=== PATIENT | female | born 1975 | race Caucasian/White ===

== ENCOUNTER 2018-06-04 11:26 | Emergency (ER) | payer OTHER ==
[2018-06-04] MEDS ORDERED: SODIUM CHLORIDE 0.9% 1,000 ML IV STA (11:57)
[2018-06-04] MEDS ORDERED: ONDANSETRON 4 MG/2 ML VIAL IVP STA (11:57)
--- NOTE | 2018-06-04 12:12 | ED ---
General Adult HPI - General Chief complaint: Nausea/Vomiting/Diarrhea Stated complaint: diarrhea, dehydration Time Seen by Provider: 06/04/18 11:57 Source: patient, RN notes reviewed, old records reviewed Mode of arrival: ambulatory Limitations: no limitations - History of Present Illness Initial comments: 43-year-old female patient past medical history of hypothyroidism, status post cholecystectomy presents to ED with 3 days of abdominal cramping which have resolved, emesis which have resolved, nausea and diarrhea. Patient reports that her current complaints include nausea and diarrhea which have been persistent for 3 days. Patient denies any emesis today. Patient was that she had syndrome was abdominal cramping earlier in the week which have resolved. Patient also reports some generalized myalgias which have also resolved. Patient denies any other complaints. Systemic: Pt denies fever/chills, rash. Pt denies weakness, night sweats, weight loss. Neuro: Pt denies headache, visual disturbances, syncope or pre-syncope. HEENT: Pt denies ocular discharge or irritation, otalgia, rhinorrhea, pharyngitis or notable lymphadenopathy. Cardiopulmonary: Pt denies chest pain, SOB, heart palpitations, dyspnea on exertion. Abdominal/GI: Pt denies abdominal pain. : Pt denies dysuria, burning w/ urination, frequency/urgency. Denies new onset urinary or bowel incontinence. MSK: Pt denies loss of strength or function in extremities. Neuro: Pt denies new onset weakness, paresthesias. - Related Data Home Medications Medication Instructions Recorded Confirmed Acetaminophen Tab [Tylenol Tab] 1,000 mg PO Q6HR PRN 06/04/18 06/04/18 Levothyroxine Sodium [Synthroid] 88 mcg PO DAILY 06/04/18 06/04/18 Previous Rx's Medication Instructions Recorded Ondansetron Odt [Zofran ODT] 4 mg PO Q8HR PRN #20 tab 06/04/18 Allergies Allergy/AdvReac Type Severity Reaction Status Date / Time sulfamethoxazole Allergy Unknown Verified 06/04/18 12:02 [From Bactrim] trimethoprim [From Bactrim] Allergy Unknown Verified 06/04/18 12:02 Review of Systems ROS Statement: Those systems with pertinent positive or pertinent negative responses have been documented in the HPI. ROS Other: All systems not noted in ROS Statement are negative. Past Medical History Past Medical History: Thyroid Disorder Additional Past Medical History / Comment(s): THALSSEMIA History of Any Multi-Drug Resistant Organisms: None Reported Past Surgical History: Cholecystectomy Past Psychological History: No Psychological Hx Reported Smoking Status: Never smoker Past Alcohol Use History: None Reported Past Drug Use History: None Reported General Exam - General Exam Comments Initial Comments: Constitutional: NAD, AOX3, Pt has pleasant affect. HEENT: NC/AT, trachea midline, neck supple, no lymphadenopathy. Posterior pharynx non erythematous, without exudates. External ears appear normal, without discharge. Mucous membranes moist. Eyes PERRLA, EOM intact. There is no scleral icterus. No pallor noted. Cardiopulmonary: RRR, no murmurs, rubs or gallops, no JVD noted. Lungs CTAB in anterior and posterior bacon. No peripheral edema. Abdominal exam: Abdomen soft and non-distended. Abdomen mildly tender to palpation right upper quadrant, Lee sign negative. Repeat abdominal te nderness displayed mild periumbilical tenderness. Final abdominal exam revealed nontender abdomen. No other areas of abdominal tenderness, no tenderness at McBurney's point.. Bowel sounds active in LLQ. No hepatosplenomegaly. No ecchymosis. No guarding or rigidity. Neuro: CN II-XII grossly intact. No nuchal rigidity. MSK: No posterior calf tenderness bilaterally, homans sign negative bilaterally. Posterior tibialis and radial pulse +2 bilaterally. Sensation intact in upper and lower extremities. Full active ROM in upper and lower extremities, 5/5 stregnth. Limitations: no limitations Course Vital Signs 06/04/18 06/04/18 06/04/18 11:50 12:06 14:26 Temperature 97.9 F 97.8 F Pulse Rate 116 H 90 88 Respiratory 16 18 Rate Blood Pressure 109/66 105/76 O2 Sat by Pulse 100 100 Oximetry Medical Decision Making - Medical Decision Making 43-year-old female patient past medical history of hypothyroidism, status post cholecystectomy presents to ED with 3 days of abdominal cramping which have resolved, emesis which have resolved, nausea and diarrhea. Patient reports that her current complaints include nausea and diarrhea which have been persistent for 3 days. Patient denies any emesis today. Patient was that she had syndrome was abdominal cramping earlier in the week which have resolved. Patient also reports some generalized myalgias which have also resolved. Patient denies any other complaints. Pt VSS, afebrile. Physical exam displayed: Abdomen soft and non-distended. Abdomen mildly tender to palpation right upper quadrant, Lee sign negative. Repeat abdominal tenderness displayed mild periumbilical tenderness. Final abdominal exam revealed nontender abdomen. No other areas of abdominal tenderness, no tenderness at McBurney's point.. Bowel sounds active in LLQ. No hepatosplenomegaly. No ecchymosis. No guarding or rigidity. Laboratory investigations revealed non-impressive CBC, CMP. UA displayed plus for ketones, otherwise contaminated. Will culture. Influenza negative. KUB displayed scattered air-fluid levels. CT of abdomen and pelvis with contrast displayed likely enteritis. Other findings which will follow with primary care provider including heterogenicity myometrium, right renal cyst. Findings were discussed with patient at length. Patient verbalized understanding. Patient tolerating PO intake in ED. likely expressing a viral gastroenteritis syndrome. Patient improved with IV fluids, Zofran. Patient will continue supportive treatment at home, prescribed Zofran. Patient will follow with primary provider in 1-2 days. Patient will return to ER if condition worsens in any way. Case discussed with Dr. Landeros. - Lab Data Result diagrams: 06/04/18 12:18 06/04/18 12:18 Lab Results 06/04/18 06/04/18 06/04/18 Range/Units 12:18 12:18 12:18 WBC 4.6 (3.8-10.6) k/uL RBC 5.48 H (3.80-5.40) m/uL Hgb 12.0 (11.4-16.0) gm/dL Hct 37.7 (34.0-46.0) % MCV 68.7 L (80.0-100.0) fL MCH 21.9 L (25.0-35.0) pg MCHC 31.9 (31.0-37.0) g/dL RDW 14.5 (11.5-15.5) % Plt Count 265 (150-450) k/uL Neutrophils % 77 % Lymphocytes % 12 % Monocytes % 6 % Eosinophils % 3 % Basophils % 1 % Neutrophils # 3.5 (1.3-7.7) k/uL Lymphocytes # 0.6 L (1.0-4.8) k/uL Monocytes # 0.3 (0-1.0) k/uL Eosinophils # 0.1 (0-0.7) k/uL Basophils # 0.0 (0-0.2) k/uL Hypochromasia Slight Microcytosis Marked Sodium 138 (137-145) mmol/L Potassium 3.8 (3.5-5.1) mmol/L Chloride 103 (98-107) mmol/L Carbon Dioxide 23 (22-30) mmol/L Anion Gap 12 mmol/L BUN 12 (7-17) mg/dL Creatinine 0.53 (0.52-1.04) mg/dL Est GFR (CKD-EPI)AfAm >90 (>60 ml/min/1.73 sqM) Est GFR (CKD-EPI)NonAf >90 (>60 ml/min/1.73 sqM) Glucose 84 (74-99) mg/dL Plasma Lactic Acid [place] 1.3 (0.7-2.0) mmol/L Calcium 9.5 (8.4-10.2) mg/dL Total Bilirubin 0.7 (0.2-1.3) mg/dL AST 28 (14-36) U/L ALT 35 (9-52) U/L Alkaline Phosphatase 65 (38-126) U/L Total Protein 7.4 (6.3-8.2) g/dL Albumin 4.3 (3.5-5.0) g/dL Lipase 50 (23-300) U/L Urine Color Urine Appearance (Clear) Urine pH (5.0-8.0) Ur Specific [place] (1.001-1.035) Urine Protein (Negative) Urine Glucose (UA) (Negative) Urine Ketones (Negative) Urine Blood (Negative) Urine Nitrite (Negative) Urine Bilirubin (Negative) Urine Urobilinogen (<2.0) mg/dL Ur Leukocyte Esterase (Negative) Urine RBC (0-5) /hpf Urine WBC (0-5) /hpf Ur Squamous Epith Cells (0-4) /hpf Urine Bacteria (None) /hpf Urine Mucus (None) /hpf Urine HCG, Qual (Not Detectd) Influenza Type A RNA (Not Detectd) Influenza Type B (PCR) (Not Detectd) 06/04/18 06/04/18 06/04/18 Range/Units 12:18 12:18 12:25 WBC (3.8-10.6) k/uL RBC (3.80-5.40) m/uL Hgb (11.4-16.0) gm/dL Hct (34.0-46.0) % MCV (80.0-100.0) fL MCH (25.0-35.0) pg MCHC (31.0-37.0) g/dL RDW (11.5-15.5) % Plt Count (150-450) k/uL Neutrophils % % Lymphocytes % % Monocytes % % Eosinophils % % Basophils % % Neutrophils # (1.3-7.7) k/uL Lymphocytes # (1.0-4.8) k/uL Monocytes # (0-1.0) k/uL Eosinophils # (0-0.7) k/uL Basophils # (0-0.2) k/uL Hypochromasia Microcytosis Sodium (137-145) mmol/L Potassium (3.5-5.1) mmol/L Chloride (98-107) mmol/L Carbon Dioxide (22-30) mmol/L Anion Gap mmol/L BUN (7-17) mg/dL Creatinine (0.52-1.04) mg/dL Est GFR (CKD-EPI)AfAm (>60 ml/min/1.73 sqM) Est GFR (CKD-EPI)NonAf (>60 ml/min/1.73 sqM) Glucose (74-99) mg/dL Plasma Lactic Acid [place] (0.7-2.0) mmol/L Calcium (8.4-10.2) mg/dL Total Bilirubin (0.2-1.3) mg/dL AST (14-36) U/L ALT (9-52) U/L Alkaline Phosphatase (38-126) U/L Total Protein (6.3-8.2) g/dL Albumin (3.5-5.0) g/dL Lipase (23-300) U/L Urine Color Yellow Urine Appearance Cloudy H (Clear) Urine pH 6.0 (5.0-8.0) Ur Specific [place] 1.030 (1.001-1.035) Urine Protein 1+ H (Negative) Urine Glucose (UA) Negative (Negative) Urine Ketones 4+ H (Negative) Urine Blood Small H (Negative) Urine Nitrite Negative (Negative) Urine Bilirubin Negative (Negative) Urine Urobilinogen 2.0 (<2.0) mg/dL Ur Leukocyte Esterase Small H (Negative) Urine RBC 16 H (0-5) /hpf Urine WBC 8 H (0-5) /hpf Ur Squamous Epith Cells 8 H (0-4) /hpf Urine Bacteria Rare H (None) /hpf Urine Mucus Many H (None) /hpf Urine HCG, Qual Not Detected (Not Detectd) Influenza Type A RNA Not Detected (Not Detectd) Influenza Type B (PCR) Not Detected (Not Detectd) Disposition Clinical Impression: Nausea vomiting and diarrhea Disposition: HOME SELF-CARE Instructions (If sedation given, give patient instructions): Acute Nausea and Vomiting (ED), Acute Diarrhea (ED), Nutrition Tips for Relief of Diarrhea (ED) Additional Instructions: Patient to adhere to previously discussed treatment plan and will take medication(s) as directed. Patient to follow up with PCP in 1-2 days. Patient to return to ED if symptoms do not improve. Resolved with primary care provider in 1-2 days. Please see Zofran as needed for nausea. Please return to ER if condition worsens in any way or if abdominal pain develops. Prescriptions: Ondansetron Odt [Zofran ODT] 4 mg PO Q8HR PRN #20 tab PRN Reason: Nausea Is patient prescribed a controlled substance at d/c from ED?: No Referrals: Geovany Huerta MD [Primary Care Provider] - 1-2 days
--- NOTE | 2018-06-04 12:47 | XR ---
EXAMINATION TYPE: XR KUB DATE OF EXAM: 06/04/2018 12:39 PM CLINICAL HISTORY: Left lower quadrant pain for 2 days with diarrhea. TECHNIQUE: Single upright image of the abdomen is obtained. COMPARISON: None. FINDINGS: Numerous colonic air-fluid levels are seen throughout nondilated bowel compatible with the patient's provided history of colonic malabsorption/diarrhea. Air-fluid levels are also seen within n ondilated small bowel suggesting underlying ileus. No dilated bowel to suggest obstruction. Surgical clips are seen within the right mid abdomen. No pneumoperitoneum. Lung bases are well aerated. Osseou s structures are intact. IMPRESSION: Colonic air-fluid levels relate to the patient's known colonic malabsorption/diarrhea. Sc attered air-fluid levels suggest small bowel ileus, likely reactive. No dilated bowel to suggest obst ruction.
[2018-06-04 12:56] LABS: ALT 35 U/L (9-52); AST 28 U/L (14-36); Albumin 4.3 g/dL (3.5-5.0); Alkaline Phosphatase 65 U/L (38-126); Anion Gap 12 mmol/L; Blood Urea Nitrogen 12 mg/dL (7-17); Calcium 9.5 mg/dL (8.4-10.2); Carbon Dioxide 23 mmol/L (22-30); Chloride 103 mmol/L (98-107); Glucose 84 mg/dL (74-99); Lipase 50 U/L (23-300); Potassium 3.8 mmol/L (3.5-5.1); Sodium 138 mmol/L (137-145); Total Bilirubin 0.7 mg/dL (0.2-1.3); Total Protein 7.4 g/dL (6.3-8.2)
[2018-06-04 13:02] LABS: Appearance,Urine Cloudy (Clear); Bacteria,Urine Rare /hpf; Bilirubin,Urine Negative (Negative); Blood,Urine Small (Negative); Color,Urine Yellow; Glucose,Urine (UA) Negative (Negative); Ketones,Urine 4+ (Negative); Leukocyte Esterase,Urine Small (Negative); Mucus,Urine Many /hpf; Nitrite,Urine Negative (Negative); Protein,Urine 1+ (Negative); RBC,Urine 16 /hpf (0-5); Squamous Epithelial Cell,Urine 8 /hpf (0-4)
[2018-06-04 13:10] LABS: Basophils % (A) 1 %; Eosinophils # (A) 0.1 k/uL (0-0.7); Eosinophils % (A) 3 %; HCT 37.7 % (34.0-46.0); Hypochromasia Slight; Lymphocytes # (A) 0.6 k/uL (1.0-4.8); Lymphocytes % (A) 12 %; MCH 21.9 pg (25.0-35.0); MCHC 31.9 g/dL (31.0-37.0); MCV 68.7 fL (80.0-100.0); Mean Platelet Volume 6.5; Microcytosis Marked; Monocytes # (A) 0.3 k/uL (0-1.0); Monocytes % (A) 6 %; Neutrophils # (A) 3.5 k/uL (1.3-7.7); Neutrophils % (A) 77 %; Platelet Count 265 k/uL (150-450); RBC 5.48 m/uL (3.80-5.40); RDW 14.5 % (11.5-15.5); WBC 4.6 k/uL (3.8-10.6)
--- NOTE | 2018-06-04 14:15 | CT ---
EXAMINATION TYPE: CT abdomen pelvis w con DATE OF EXAM: 06/04/2018 HISTORY: Diarrhea, RLQ pain CT DLP: 425.7mGycm Automated Exposure Control for Dose Reduction was Utilized. CONTRAST: CT scan of the abdomen and pelvis is performed with IV Contrast, patient injected with 100 mL of Isov ue 300. COMPARISON: None. FINDINGS: LUNG BASES: No significant abnormality is appreciated. LIVER/GB: No significant abnormality is appreciated. Gallbladder is surgically absent. PANCREAS: No significant abnormality is seen. SPLEEN: No significant abnormality is seen. ADRENALS: No significant abnormality is seen. KIDNEYS: Left upper pole too small to accurately characterize 4 mm hypoattenuated left renal lesion i s seen on image 20. There is a new 9 mm right renal lesion in the upper pole on image 24 that althoug h does not meet criteria for a simple cyst may represent a cyst with signal enhancement as this measu res fluid attenuation on the delayed images. However this was not seen on the exam of 2014. There is a left retroaortic renal vein. BOWEL: Hyperdense foci are seen within the cecum near the expected location of the appendix. Clustere d small bowel loops are seen within the right lower quadrant therefore a discrete appendix is not see n. On coronal image 28 there is thickening of the terminal ileum. Multifocal small bowel wall thicken ing is seen throughout numerous loops of scattered small bowel. Colonic air-fluid levels representing the patient's known symptom of diarrhea. No dilated large or small bowel is seen. UTERUS/ADNEXA: Uterus is diffusely heterogenous with engorged pelvic vasculature. Crenulated appearin g cyst seen of a left ovarian follicle/cyst on coronal image 47. Follicular changes of the right ovar y are noted on image 42 and 41. LYMPH NODES: No greater than 1cm abdominal or pelvic lymph nodes are appreciated. OSSEOUS STRUCTURES: No acute osseous pathology identified. IMPRESSION: 1. Multifocal small bowel wall thickening including thickening of the terminal ileum suggests enterit is of infectious or inflammatory etiology. Inflammatory bowel disease should be considered given the involvement of the terminal ileum. 2. Colonic air-fluid levels correspond to the patient's clinical symptom of diarrhea. No evidence of bowel obstruction. 3. Diffuse heterogeneity of the myometrium should be further characterized with ultrasound. Additiona lly there are engorged pelvic vessels suggesting pelvic congestion syndrome. Bilateral follicles with a crenulated appearance on the left are seen likely representing an involuting left hemorrhagic cyst . 4. Appendix is not clearly defined given the numerous adjacent loops of small bowel. 5. Probable right renal cyst with pseudoenhancement that could be confirmed with ultrasound.
[2018-06-04 14:28] VITALS: BP 105/76; PULSE 88; RESP 18; TEMP 97.8
== END 2018-06-04 14:52 | disposition home or self-care (01) ==
LOC: EC 11:26
DX: R19.7 Diarrhea, unspecified (principal); R11.2 Nausea with vomiting, unspecified; R82.4 Acetonuria; N28.1 Cyst of kidney, acquired; R93.89 Abnormal findings on diagnostic imaging of other specified body structures; E03.9 Hypothyroidism, unspecified; Z88.2 Allergy status to sulfonamides; Z79.890 Hormone replacement therapy; Z90.49 Acquired absence of other specified parts of digestive tract
CPT/HCPCS: 36415; 74018; 74177; 80053; 81001; 81025; 83605; 83690; 85025; 87502; 96361; 96374; 99285

== ENCOUNTER → 2018-07-30 | Outpatient (CLI) | payer OTHER ==
--- NOTE | 2018-07-30 16:12 | US ---
EXAMINATION TYPE: US pelvic complete DATE OF EXAM: 07/30/2018 COMPARISON: Correlation CT 06/04/2018 CLINICAL HISTORY: 43-year-old female N83.0 Ovarian cyst. Follow up recent CT, 3, para 2, ecto pic 1, history of left fallopian tube removed TECHNIQUE: Transabdominal sonographic images of the pelvis were acquired. Date of LMP: 07/20/2018 FINDINGS: EXAM MEASUREMENTS: Uterus: 7.2 x 4.2 x 4.1 cm Endometrial Stripe: 0.5 cm Right Ovary: 2.7 x 1.6 x 1.7 cm Left Ovary: 2.8 x 1.9 x 1.5 cm 1. Uterus: anteverted with heterogeneous myometrium 2. Endometrium: wnl 3. Right Ovary: multiple follicles with largest measuring 1.5cm 4. Left Ovary: multiple follicles with largest measuring 1.4cm 5. Bilateral Adnexa: prominent vessels seen in left adnexa 6. Posterior cul-de-sac: tiny amount of free fluid IMPRESSION: 1. Anteverted uterus. Myometrial heterogeneity could reflect diffuse small fibroid change or adenomyo sis. 2. Normal follicular change in both ovaries. 3. Trace cul-de-sac free fluid likely physiologic.
== END ==
LOC: RADUSWWP 15:16
PROVIDERS: ATTEND Obstetrics & Gynecology
DX: N85.4 Malposition of uterus (principal); N83.202 Unspecified ovarian cyst, left side
CPT/HCPCS: 76856

== ENCOUNTER → 2018-08-12 | Outpatient (CLI) | payer OTHER ==
--- NOTE | 2018-08-12 12:11 | MM ---
Reason for exam: screening (asymptomatic). Baseline mammogram. History: Took hormonal contraceptives for 15 years. Physical Findings: Nurse did not find any significant physical abnormalities on exam. MG 3D Screening Mammo W/Cad Bilateral CC and MLO view(s) were taken. The breast tissue is heterogeneously dense. This may lower the sensitivity of mammography. No suspicious abnormality. No significant findings. These results were verbally communicated with the patient and result sheet given to the patient on 08/12/18. ASSESSMENT: Negative, BI-RAD 1 RECOMMENDATION: Routine screening mammogram of both breasts in 1 year.
== END | disposition home or self-care (01) ==
LOC: RADMAMWWP 09:33
PROVIDERS: ATTEND Family Medicine
DX: Z12.31 Encounter for screening mammogram for malignant neoplasm of breast (principal)
CPT/HCPCS: 77063; 77067

== ENCOUNTER → 2020-05-11 | Outpatient (CLI) | payer OTHER ==
--- NOTE | 2020-05-11 08:26 | US ---
EXAMINATION TYPE: US pelvic complete DATE OF EXAM: 05/11/2020 COMPARISON: NONE CLINICAL HISTORY: N93.8 uterine bleeding Patient states intermittent RLQ pain TECHNIQUE: Transabdominal (TA). Date of LMP: 05-08-20 EXAM MEASUREMENTS: Uterus: 7.8 x 5.2 x 5.5 cm Endometrial Stripe: 0.4 cm Right Ovary: 2.7 x 2.1 x 1.7 cm Left Ovary: 3.1 x 2.2 x 2.3 cm 1. Uterus: probable fibroid measuring 2. Endometrium: wnl 3. Right Ovary: wnl 4. Left Ovary: wnl 5. Bilateral Adnexa: prominent vasculature on right 6. Posterior cul-de-sac: wnl IMPRESSION: 1. Probable leiomyomatous change of the uterus.
== END | disposition home or self-care (01) ==
LOC: RADUSWWP 06:59
PROVIDERS: ATTEND Obstetrics & Gynecology
DX: N93.8 Other specified abnormal uterine and vaginal bleeding (principal); Z88.1 Allergy status to other antibiotic agents; Z88.2 Allergy status to sulfonamides
CPT/HCPCS: 76856